=== PATIENT | male | born 1955 | race African-American/Black ===

== ENCOUNTER 2019-03-13 17:33 | Emergency (ER) | payer OTHER ==
--- NOTE | 2019-03-13 18:36 | RAD REPORT ---
EXAM DESCRIPTION: RAD - Chest Pa And Lat (2 Views) - 03/13/2019 6:14 pm CLINICAL HISTORY: PAIN, right lower back, rib and flank pain, recent fall COMPARISON: None. TECHNIQUE: PA, AP and lateral views of the chest were obtained. Patient had difficulty maintaining p ositioning so multiple acquisitions were obtained. FINDINGS: The lungs are clear of a peripheral mass or consolidation. Scarring or atelectasis present in each lung base. No significant failure or volume overload findings. Heart size is normal and ce ntral vasculature is within normal limits. No pleural effusion or pneumothorax seen. Degenerative a nd scoliotic changes are present. No aortic abnormality. IMPRESSION: No acute cardiopulmonary process.
[2019-03-13 19:39] LABS: Absolute Lymphocytes (CBC) 2.5 K/uL (0.7-4.9); Basophils % 0.6 % (0-1.3); Hematocrit 41.4 % (39.6-49.0); Lymphocytes % 38.5 % (15.3-44.8); MPV 9.7 fL (7.6-11.3); RBC Red Blood Cell Count 4.74 M/uL (4.33-5.43)
[2019-03-13 20:02] LABS: BUN Blood Urea Nitrogen 16 mg/dL (7-18); Bicarbonate 32 mmol/L (21-32); Glucose Level 81 mg/dL (74-106); Potassium 3.8 mmol/L (3.5-5.1); Sodium Level 139 mmol/L (136-145)
--- NOTE | 2019-03-13 21:10 | RAD REPORT ---
EXAM DESCRIPTION: CT - Abdomen Pelvis W Contrast - 03/13/2019 8:26 pm CLINICAL HISTORY: fall injury;Abd painfall, abdominal pain COMPARISON: None. TECHNIQUE: Biphasic, helical CT imaging of the abdomen and pelvis was performed following 100 ml non -ionic IV contrast. No oral contrast administered. All CT scans are performed using dose optimization technique as appropriate and may include automated exposure control or mA/KV adjustment according to patient size. FINDINGS: No suspicious findings in the lung bases. The liver, spleen, and pancreas show no suspicious findings. Gallbladder and biliary tree are also wi thout suspicious finding. Symmetric renal function is seen with no hydronephrosis or suspicious renal mass. No pyelonephritis o r acute parenchymal process. No bladder abnormalities. No adrenal abnormalities. No dilated bowel loops or bowel wall thickening. No free air, free fluid or inflammatory stranding. No hernia, mass or bulky lymphadenopathy. Degenerative disc disease at L4-5 and L5-S1. No compression fracture or acute vertebral body finding. Facet degenerative changes are present. Vascular calcifications are present without acute finding. IMPRESSION: Contrast enhanced CT abdomen and pelvis showing no acute or emergent finding.
--- NOTE | 2019-03-13 21:26 | EDPHYS ---
Physician Documentation [facility] Name: Chente Dupont Age: 63 yrs Sex: Male : 1955 Arrival Date: 03/13/2019 Time: 17:34 Bed 19 Private MD: ED Physician Bo Lawrence HPI: 03/13 19:22 This 63 yrs old Black Male presents to ER via Wheelchair with complaints of Rib Injury. la1 19:22 The patient presents with abdominal pain in the right upper quadrant, right lower la1 quadrant. Onset: The symptoms/episode began/occurred 4 day(s) ago. The symptoms do not radiate. Associated signs and symptoms: Pertinent negatives: nausea, vomiting, and diarrhea, nausea and vomiting, blood in stools, chest pain, hematuria, shortness of breath, testicular pain, vomiting, vomiting blood. The symptoms are described as sharp. Modifying factors: The symptoms are alleviated by nothing, the symptoms are aggravated by movement, touching the area. Severity of pain: At its worst the pain was moderate in the emergency department the pain is unchanged. pt reports fall from standing 4 days ago. Pain in RUQ and RLQ. Tender to palpation in that area. . Historical: - Allergies: 17:50 No Known Allergies; sr5 - PMHx: 17:50 polio; neck injury 91'; sr5 - Immunization history:: Adult Immunizations up to date. - Social history:: Smoking status: Patient/guardian denies using tobacco. - Ebola Screening: : Patient denies travel to an Ebola-affected area in the 21 days before illness onset. ROS: 19:24 Constitutional: Negative for fever, chills, and weight loss, Eyes: Negative for injury, la1 pain, redness, and discharge, ENT: Negative for injury, pain, and discharge, Neck: Negative for injury, pain, and swelling, Cardiovascular: Negative for chest pain, palpitations, and edema, Respiratory: + pleuritic chest pain Abdomen/GI: + abdominal pain Back: Negative for injury and pain, MS/Extremity: Negative for injury and deformity, Neuro: Negative for headache, weakness, numbness, tingling, and seizure. Exam: 19:25 Constitutional: This is a well developed, well nourished patient who is awake, alert, la1 and in no acute distress. Head/Face: Normocephalic, atraumatic. Eyes: Pupils equal round and reactive to light, extra-ocular motions intact. Periorbital areas with no swelling, redness, or edema. ENT: . Mucous membranes moist. Neck: Supple, full range of motion without nuchal rigidity, or vertebral point tenderness. No Meningismus. Chest/axilla: tenderness to palpation of right anterior inferior chest wall Cardiovascular: Regular rate and rhythm with a normal S1 and S2. No gallops, murmurs, or rubs. Normal PMI, no JVD. No pulse deficits. Respiratory: Lungs have equal breath sounds bilaterally, clear to auscultation No rales, rhonchi or wheezes noted. No increased work of breathing, no retractions or nasal flaring. 19:25 Abdomen/GI: Inspection: abdomen appears normal, distension, that is mild, Bowel sounds: normal, in all quadrants, Palpation: soft, in all quadrants, mild abdominal tenderness, in the epigastric area, right upper quadrant and right lower quadrant, Indicators: McBurney's point is not tender, Jarrett's sign is negative, Rovsing's sign is negative, Obturator sign is negative, Psoas sign is negative. Vital Signs: 17:50 BP 118 / 78; Pulse 55; Resp 14; Temp 98.1; Pulse Ox 97% on R/A; Weight 88.45 kg (R); sr5 Height 5 ft. 11 in. (180.34 cm); Pain 8/10; 20:51 BP 138 / 73; Pulse 49; Resp 15 S; Pulse Ox 99% on R/A; jd3 22:14 Pulse 52; Resp 16 S; Pulse Ox 97% on R/A; jd3 17:50 Body Mass Index 27.20 (88.45 kg, 180.34 cm) sr5 MDM: 18:37 Patient medically screened. la1 21:24 Data reviewed: vital signs, nurses notes, lab test result(s), radiologic studies, I la1 have discussed the patient's presentation/case with the attending Emergency Department Physician; and as a result, I will discharge patient. Data interpreted: Pulse oximetry: on room air. Counseling: I had a detailed discussion with the patient and/or guardian regarding: the historical points, exam findings, and any diagnostic results supporting the discharge/admit diagnosis, lab results, radiology results, the need for outpatient follow up, a family practitioner, to return to the emergency department if symptoms worsen or persist or if there are any questions or concerns that arise at home. Special discussion: Based on the patient's Hx, exam, and Dx evaluation, there is no indication for emergent surgery or inpatient Tx. It is understood by the patient/guardian that if the Sx's persist or worsen they need to return immediately for re-evaluation. I discussed with the patient/guardian that the patient's current presentation does not indicate dosing of antibiotics. They should follow-up with their primary care provider and return if the symptoms persist or progress. 03/13 19:08 Order name: CBC with Diff; Complete Time: 20:46 la1 03/13 19:08 Order name: BMP; Complete Time: 20:46 la1 03/13 17:52 Order name: Chest Pa And Lat (2 Views) XRAY; Complete Time: 18:40 sr5 03/13 19:08 Order name: CT Abd/Pelvis - IV Contrast Only; Complete Time: 21:19 la1 Administered Medications: 22:10 Drug: Motrin 600 mg Route: PO; jd3 22:10 Follow up: Response: Medication administered at discharge. jd3 22:10 Drug: Tylenol 650 mg Route: PO; jd3 22:11 Follow up: Response: Medication administered at discharge. jd3 Disposition: 03/13/19 21:25 Discharged to Home. Impression: Abdominal and pelvic pain. - Condition is Stable. - Discharge Instructions: Abdominal Pain, Adult, Fall Prevention in the Home, Abdominal Pain, Adult, [id number]. - Medication Reconciliation Form, Thank You Letter form. - Follow up: Private Physician; When: 2 - 3 days; Reason: Recheck today's complaints, Re-evaluation by your physician. Follow up: Emergency Department; When: As needed. - Problem is new. - Symptoms have improved. Addendum: 03/22/2019 09:23 Co-signature as Attending Physician, Bo Lawrence MD I agree with the assessment and c bearden plan of care. Signatures: Dispatcher [employer] Bo Monaco MD MD cha Attema, Lee, HAND BULLDOZER-C HAND BULLDOZER-Cla1 Karel Samuels RN RN sr5 Dudley Rebollar RN RN jd3 Dion Figueroa RN RN ae4 Corrections: (The following items were deleted from the chart) 03/13 21:25 21:25 03/13/2019 21:25 Discharged to Home. Impression: Abdominal and pelvic pain. la1 Condition is Stable. Forms are Medication Reconciliation Form, Thank You Letter, Antibiotic Education, Prescription Opioid Use. Follow up: Private Physician; When: 2 - 3 days; Reason: Recheck today's complaints, Re-evaluation by your physician. Follow up: Emergency Department; When: As needed. la1 22:15 21:25 03/13/2019 21:25 Discharged to Home. Impression: Abdominal and pelvic pain. jd3 Condition is Stable. Forms are Medication Reconciliation Form, Thank You Letter, Antibiotic Education, Prescription Opioid Use. Follow up: Private Physician; When: 2 - 3 days; Reason: Recheck today's complaints, Re-evaluation by your physician. Follow up: Emergency Department; When: As needed. Problem is new. Symptoms have improved. la1
--- NOTE | 2019-03-13 21:26 | ER ---
Nurse's Notes [facility] Name: Chente Dupont Age: 63 yrs Sex: Male : 1955 Arrival Date: 03/13/2019 Time: 17:34 Bed 19 Private MD: Diagnosis: Abdominal and pelvic pain Presentation: 03/13 17:48 Presenting complaint: Patient states: pain to RIGHT lower ribs/flank s/p fall from sr5 standing position on 03/10. No visible bruising noted. Abd firm, appears distended, pt reports this as normal. Transition of care: patient was not received from another setting of care. Onset of symptoms was March 10, 2019. Risk Assessment: Do you want to hurt yourself or someone else? Patient reports no desire to harm self or others. Initial Sepsis Screen: Does the patient meet any 2 criteria? No. Patient's initial sepsis screen is negative. Care prior to arrival: None. 17:48 Method Of Arrival: Wheelchair sr5 17:48 Acuity: MARILYN 4 sr5 18:58 Initial Sepsis Screen: Does the patient have a suspected source of infection? No. ae4 Patient's initial sepsis screen is negative. Triage Assessment: 17:50 General: Appears uncomfortable, Behavior is cooperative. Pain: Complains of pain in sr5 anterior aspect of right lateral abdomen, posterior aspect of right lateral abdomen and right upper quadrant Pain. Neuro: No deficits noted. Cardiovascular: No deficits noted. Respiratory: Respiratory effort is even, unlabored, Respiratory pattern is regular, symmetrical. Historical: - Allergies: 17:50 No Known Allergies; sr5 - PMHx: 17:50 polio; neck injury 91'; sr5 - Immunization history:: Adult Immunizations up to date. - Social history:: Smoking status: Patient/guardian denies using tobacco. - Ebola Screening: : Patient denies travel to an Ebola-affected area in the 21 days before illness onset. Screenin:57 Abuse screen: Denies threats or abuse. Nutritional screening: No deficits noted. ae4 Tuberculosis screening: No symptoms or risk factors identified. Fall Risk None identified. Assessment: 18:44 General: Appears uncomfortable, well groomed, Behavior is cooperative, Patient is slow ae4 to move, and resistant to movement. . Pain: Complains of pain in Right rib area pain. Neuro: Level of Consciousness is awake, alert, obeys commands, Oriented to person, place, time, situation, Appropriate for age. Cardiovascular: Heart tones S1 S2 present Patient's skin is warm and dry. Rhythm is sinus bradycardia. Respiratory: Airway is patent Respiratory effort is even, unlabored, Respiratory pattern is regular, symmetrical, Breath sounds are diminished in right lower lobe, left posterior lower lobe and right posterior lower lobe. GI: No signs and/or symptoms were reported involving the gastrointestinal system. Abdomen is round distended, obese. : No signs and/or symptoms were reported regarding the genitourinary system. EENT: No signs and/or symptoms were reported regarding the EENT system. Derm: Skin is normal. Musculoskeletal: Reports Patient has a hx of polio and has right leg shortening and unsteady, weak gait. Injury Description: Patient reports he fell and struck the floor with his right rib area. 19:37 General: Appears in no apparent distress. uncomfortable, Behavior is calm, cooperative, jd3 appropriate for age. Pain: Complains of pain in chest Quality of pain is described as aching, tender. Neuro: Level of Consciousness is awake, alert, obeys commands, Oriented to person, place, time, situation. Cardiovascular: Capillary refill < 3 seconds Patient's skin is warm and dry. Respiratory: Airway is patent Respiratory effort is even, unlabored, Respiratory pattern is regular, symmetrical, Denies cough, shortness of breath. GI: No signs and/or symptoms were reported involving the gastrointestinal system. : No signs and/or symptoms were reported regarding the genitourinary system. EENT: No signs and/or symptoms were reported regarding the EENT system. Derm: Skin is intact, Skin is dry, Skin is normal, Skin temperature is warm. 20:51 Reassessment: Patient appears in no apparent distress at this time. No changes from jd3 previously documented assessment. Patient and/or family updated on plan of care and expected duration. Pain level reassessed. Patient is alert, oriented x 3, equal unlabored respirations, skin warm/dry/pink. 22:13 Reassessment: Patient appears in no apparent distress at this time. Patient and/or jd3 family updated on plan of care and expected duration. Pain level reassessed. Patient is alert, oriented x 3, equal unlabored respirations, skin warm/dry/pink. assisted pt to wheelchair and into vehicle. pt reported understanding of discharge instructions. Vital Signs: 17:50 BP 118 / 78; Pulse 55; Resp 14; Temp 98.1; Pulse Ox 97% on R/A; Weight 88.45 kg (R); sr5 Height 5 ft. 11 in. (180.34 cm); Pain 8/10; 20:51 BP 138 / 73; Pulse 49; Resp 15 S; Pulse Ox 99% on R/A; jd3 22:14 Pulse 52; Resp 16 S; Pulse Ox 97% on R/A; jd3 17:50 Body Mass Index 27.20 (88.45 kg, 180.34 cm) sr5 ED Course: 17:34 Patient arrived in ED. as 17:49 Triage completed. sr5 17:50 Arm band placed on left wrist. sr5 18:05 Carr[facility]. la1 18:05 Bo Lawrence MD is Attending Physician. la1 18:12 Chest Pa And Lat (2 Views) XRAY In Process Unspecified. EDMS 18:35 Dion Figueroa, CARLOS is Primary Nurse. ae4 18:58 Bed in low position. Call light in reach. Side rails up X 1. Pulse ox on. NIBP on. Warm ae4 blanket given. 19:31 Inserted saline lock: 22 gauge in left antecubital area, using aseptic technique. Blood mt collected. 20:27 CT Abd/Pelvis - IV Contrast Only In Process Unspecified. EDMS 22:11 No provider procedures requiring assistance completed. IV discontinued, intact, jd3 bleeding controlled, No redness/swelling at site. Pressure dressing applied. Administered Medications: 22:10 Drug: Motrin 600 mg Route: PO; jd3 22:10 Follow up: Response: Medication administered at discharge. jd3 22:10 Drug: Tylenol 650 mg Route: PO; jd3 22:11 Follow up: Response: Medication administered at discharge. jd3 Outcome: 21:25 Discharge ordered by . la1 22:11 Discharged to home via wheelchair, with family. jd3 22:11 Condition: stable 22:11 Discharge instructions given to patient, family, Instructed on discharge instructions, follow up and referral plans. incitivespirometer Demonstrated understanding of instructions, follow-up care. 22:15 Patient left the ED. jd3 Signatures: Dispatcher [employer] Debra Villavicencio Lee, MESSAGE AND DELIVERY SERVICE PRICER-C MESSAGE AND DELIVERY SERVICE PRICER-Cla1 Karel Samuels RN RN sr5 Tamie Olivarez mt, Jonathon, RN RN jd3 Dion Figueroa RN RN ae4
[2019-03-13] MEDS ORDERED: ACETAMINOPHEN 325 MG TABLET ONE (21:53)
[2019-03-13] MEDS ORDERED: IBUPROFEN 400 MG TAB ONE (21:54)
[2019-03-13] MEDS ORDERED: IBUPROFEN 200 MG TAB PO ONE (21:54)
[2019-03-13 22:20] VITALS: TEMP 98.1
[2019-03-13 22:21] VITALS: BP 138/73
[2019-03-13 22:22] VITALS: O2SAT 97
== END 2019-03-13 22:15 | disposition home or self-care (01) ==
LOC: ER 17:33
DX: R10.2 Pelvic and perineal pain (principal); W19.XXXA Unspecified fall, initial encounter
CPT/HCPCS: 36415; 71046; 74177; 80048; 85025; 99284

== ENCOUNTER 2022-04-07 23:49 | Emergency (ER) | payer OTHER ==
--- OUTSIDE RECORDS SUMMARY | 2022-04-07 23:53 | XMS REPORT | Continuity of Care Document ---
:1955 Author Organization [facility] t Address [facility] [place] [id number] Care Team Providers Name Role Phone DELFINO KU Attending Clinician Unavailable Larry Ortiz Attending Clinician Unavailable THIAGO GONZALEZ Attending Clinician Unavailable Oracio Attending Clinician Unavailable Oracio Admitting Clinician Unavailable Payers Payer Name Policy Type Policy Number Effective Date Expiration Date S y[place]: [id number] 2006 [employer] 00:00:00 [place] - [id number] HP - TRADITIONAL Problems This patient has no known problems. Allergies, Adverse Reactions, Alerts This patient has no known allergies or adverse reactions. Medications This patient has no known medications. Procedures This patient has no known procedures. Encounters Start End Encounter Admission Attending Care Care Encounter Source Date/Time Date/Time Type Type Clinicians Facility Department ID 2022-03-22 2022-03-22 Outpatient DOMINIQUE FRANKKELLI [facility] [id number] [place] 15:41:00 15:41:00 DELFINO [id number] [facility] 2020-12-01 2020-12-01 Outpatient DOMINIQUE Ortiz [facility] [id number] [place] 14:25:00 14:25:00 Larry [id number] [facility] 2020-11-02 2020-11-02 Outpatient DOMINIQUE GONZALEZ [facility] [id number] [place] 14:26:00 14:26:00 THIAGO [id number] [facility] 2017-09-09 2017-09-09 Outpatient Oracio [facility]G MMG [id number] [place] 03:30:00 03:30:00 [id number] Medical [facility] Results This patient has no known results.
--- NOTE | 2022-04-08 01:02 | ER ---
Nurse's Notes [facility] Name: Chente Dupont Age: 66 yrs Sex: Male : 1955 Arrival Date: 04/07/2022 Time: 23:55 Bed 8 Private MD: Diagnosis: Pain in left foot;Pain in left hand Presentation: 04/08 00:14 Chief complaint: Patient states: I have a tingly L foot, that like thumping all the way aa9 up my hip and all of my L fingers are like numb, this started yesterday. Coronavirus screen: Vaccine status: Patient reports receiving the 2nd dose of the covid vaccine. Ebola Screen: No symptoms or risks identified at this time. Initial Sepsis Screen: Does the patient meet any 2 criteria? No. Patient's initial sepsis screen is negative. Does the patient have a suspected source of infection? No. Patient's initial sepsis screen is negative. Risk Assessment: Do you want to hurt yourself or someone else? Patient reports no desire to harm self or others. Onset of symptoms was April 08, 2022. 00:14 Method Of Arrival: Wheelchair aa9 00:14 Acuity: MARILYN 4 aa9 Triage Assessment: 00:19 General: Appears uncomfortable, well groomed, Behavior is calm, cooperative, aa9 appropriate for age. Pain: Complains of pain in left foot Pain radiates to left hip Pain currently is 10 out of 10 on a pain scale. Noted to be resistant to movement. EENT: No deficits noted. Neuro: Level of Consciousness is awake, alert, obeys commands, Oriented to person, place, time, situation, Engineering Instructor are equal bilaterally Facial symmetry appears normal. Cardiovascular: Patient's skin is warm and dry. Respiratory: Airway is patent Respiratory effort is even, unlabored. GI: No signs and/or symptoms were reported involving the gastrointestinal system. : No signs and/or symptoms were reported regarding the genitourinary system. Derm: Skin is intact, is healthy with good turgor. Musculoskeletal: Reports numbness in left hand. Historical: - Allergies: 00:17 No Known Allergies; aa9 - Home Meds: 00:17 losartan oral [Active]; gabapentin oral [Active]; Hydrocodone-Acetaminophen Oral aa9 [Active]; amlodipine oral [Active]; Aspirin EC Oral [Active]; Hydrochlorothiazide Oral [Active]; - PMHx: 00:17 Polio; neck injury 91'; aa9 - PSHx: 00:17 None; aa9 - Immunization history:: Client reports receiving the 2nd dose of the Covid vaccine. - Social history:: Smoking status: Patient denies any tobacco usage or history of. - Family history:: not pertinent. Screenin:22 Abuse screen: Denies threats or abuse. Denies injuries from another. Nutritional aa9 screening: No deficits noted. Tuberculosis screening: No symptoms or risk factors identified. 01:04 [facility] ED Fall Risk Assessment (Adult) History of falling in the last 3 months, aa9 including since admission No falls in past 3 months (0 pts) Confusion or Disorientation No (0 pts) Intoxicated or Sedated No (0 pts) Impaired Gait Yes (1 pt) Mobility Assist Device Used Yes (1 pt) Altered Elimination No (0 pt) Score/Fall Risk Level 3 or more points = High Risk Oriented to surroundings, Maintained a safe environment, Educated pt \T\ family on fall prevention, incl call for assistance when getting out of bed. Assessment: 01:03 Reassessment: Patient appears in no apparent distress at this time. Patient and/or aa9 family updated on plan of care and expected duration. Pain level reassessed. Patient is alert, oriented x 3, equal unlabored respirations, skin warm/dry/pink. Neuro: Level of Consciousness is awake, alert, obeys commands, Oriented to person, place, time, situation. Respiratory: Airway is patent Respiratory effort is even, unlabored. Vital Signs: 00:14 BP 173 / 62; Pulse 62; Resp 17 S; Temp 98.1; Pulse Ox 99% on R/A; Pain 10/10; aa9 00:22 Weight 88.9 kg (R); Height 5 ft. 11 in. (180.34 cm) (R); aa9 01:00 BP 156 / 63; Pulse 57; Resp 18 S; Pulse Ox 96% on R/A; aa9 00:22 Body Mass Index 27.34 (88.90 kg, 180.34 cm) aa9 ED Course: 04/07 23:55 Patient arrived in ED. ja2 23:56 Alex Bradley MD is Attending Physician. rt 04/08 00:14 Singh, Carolina, RN is Primary Nurse. aa9 00:17 Triage completed. aa9 00:22 Patient has correct armband on for positive identification. Placed in gown. Bed in low aa9 position. Call light in reach. Side rails up X2. Adult w/ patient. Client placed on continuous cardiac and pulse oximetry monitoring. NIBP monitoring applied. 00:22 Arm band placed on Patient notified of wait time. aa9 00:30 Hand Left 3 View XRAY In Process Unspecified. EDMS 00:47 Extremity Venous Uni Ltd US In Process Unspecified. EDMS 01:04 No provider procedures requiring assistance completed. Patient did not have IV access aa9 during this emergency room visit. Administered Medications: No medications were administered Medication: 01:04 VIS not applicable for this client. aa9 Outcome: 01:02 Discharge ordered by . rt 01:07 Discharged to home via wheelchair, with family. aa9 01:07 Condition: stable 01:07 Discharge instructions given to patient, family, Instructed on discharge instructions, follow up and referral plans. medication usage, Demonstrated understanding of instructions, follow-up care, medications, Prescriptions given X 1. 01:08 Patient left the ED. aa9 Signatures: Dispatcher [employer] EDMS Alycia Samuel ja2 Carolina Singh, RN RN aa9 Alex Bradley MD MD rt
--- NOTE | 2022-04-08 01:02 | EDPHYS ---
Physician Documentation [facility] Name: Chente Dupont Age: 66 yrs Sex: Male : 1955 Arrival Date: 04/07/2022 Time: 23:55 Bed 8 Private MD: ED Physician Alex Bradley HPI: 04/08 01:33 This 66 yrs old Black Male presents to ER via Wheelchair with complaints of Feet rt Swelling, Leg Pain, Numbness Of Hand. 01:33 Presents to the ED with about 2 weeks of a left foot pain as well as a numbness to rt fingers on his left hand. He states the pain is felt somewhat worsened over the past 2 days. He reports no redness, skin change to the distal toes of the second and third digits. He denies any injury. The patient denies other numbness of the arm or leg. Pain is burning in nature, eating to the proximal thigh. There are no aggravating or alleviating factors. Symptoms are mild in severity.. Historical: - Allergies: 00:17 No Known Allergies; aa9 - Home Meds: 00:17 losartan oral [Active]; gabapentin oral [Active]; Hydrocodone-Acetaminophen Oral aa9 [Active]; amlodipine oral [Active]; Aspirin EC Oral [Active]; Hydrochlorothiazide Oral [Active]; - PMHx: 00:17 Polio; neck injury 91'; aa9 - PSHx: 00:17 None; aa9 - Immunization history:: Client reports receiving the 2nd dose of the Covid vaccine. - Social history:: Smoking status: Patient denies any tobacco usage or history of. - Family history:: not pertinent. ROS: 01:33 Constitutional: Negative for fever, chills, and weight loss, Eyes: Negative for injury, rt pain, redness, and discharge, Cardiovascular: Negative for chest pain, palpitations, and edema, Respiratory: Negative for shortness of breath, cough, wheezing, and pleuritic chest pain, Abdomen/GI: Negative for abdominal pain, nausea, vomiting, diarrhea, and constipation, Neuro: Negative for headache, weakness, numbness, tingling, and seizure, Psych: Negative for depression, anxiety, suicide ideation, homicidal ideation, and hallucinations. 01:33 MS/extremity: Positive for Pain, burning to the left foot, left him . Exam: 01:33 Constitutional: This is a well developed, well nourished patient who is awake, alert, rt and in no acute distress. Head/Face: Normocephalic, atraumatic. Chest/axilla: Normal chest wall appearance and motion. Nontender with no deformity. No lesions are appreciated. Cardiovascular: Regular rate and rhythm with a normal S1 and S2. No gallops, murmurs, or rubs. Normal PMI, no JVD. No pulse deficits. Respiratory: Lungs have equal breath sounds bilaterally, clear to auscultation and percussion. No rales, rhonchi or wheezes noted. No increased work of breathing, no retractions or nasal flaring. Skin: Warm, dry with normal turgor. Normal color with no rashes, no lesions, and no evidence of cellulitis. Neuro: Awake and alert, GCS 15, oriented to person, place, time, and situation. Cranial nerves II-XII grossly intact. Motor strength 5/5 in all extremities. Sensory grossly intact. Cerebellar exam normal. Normal gait. Psych: Awake, alert, with orientation to person, place and time. Behavior, mood, and affect are within normal limits. 01:33 Musculoskeletal/extremity: Skin is somewhat macerated and moist between the toes of the left foot, no other swelling, deformity, tenderness to palpation, no appreciable erythema. Pulses, motor, sensation intact in bilateral lower extremities. Patient has no numbness, weakness to the left arm. There is no deformities noted he has good channel layer strength.. Vital Signs: 00:14 BP 173 / 62; Pulse 62; Resp 17 S; Temp 98.1; Pulse Ox 99% on R/A; Pain 10/10; aa9 00:22 Weight 88.9 kg (R); Height 5 ft. 11 in. (180.34 cm) (R); aa9 01:00 BP 156 / 63; Pulse 57; Resp 18 S; Pulse Ox 96% on R/A; aa9 00:22 Body Mass Index 27.34 (88.90 kg, 180.34 cm) aa9 MDM: 04/07 23:58 Patient medically screened. rt 04/08 01:33 Differential diagnosis: DVT, neurologic deficit, neuropathic pain cellulitis, septic rt arthritis. Data reviewed: vital signs, nurses notes, radiologic studies. Independent interpretation of the following test(s) in the Emergency Department X-Ray: My interpretation is No acute abnormalities noted. Test considered but Not performed: Labs: Stable vital signs. ED course: Patient presents to the ED with pain to the left foot, left hand. There is no appreciable neurologic deficit, do not suspect CVA, TIA. 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 Patient with macerated skin between the toes. I informed patient she keep the toes dry. This possible there are some neuropathic pain present. Will prescribe patient gabapentin. Do not believe the narcotics are indicated at this time. Patient stable for outpatient care to follow-up with PCP, return precautions discussed. 04/08 00:08 Order name: Extremity [facility]ous [employer] US rt 04/08 00:08 Order name: Hand Left 3 View XRAY rt Administered Medications: No medications were administered Disposition Summary: 04/08/22 01:02 Discharge Ordered Location: Home rt Problem: new rt Symptoms: are unchanged rt Condition: Stable rt Diagnosis - Pain in left foot rt - Pain in left hand rt Followup: rt - With: Private Physician - When: 2 - 3 days - Reason: Discharge Instructions: - Discharge Summary Sheet rt - Musculoskeletal Pain rt - Neuropathic Pain rt Forms: - Medication Reconciliation Form rt - Thank You Letter rt - Antibiotic Education rt - Prescription Opioid Use rt Prescriptions: - GABAPENTIN 100 MG tab - take 1 tablet by ORAL route 3 times per day; 30 tablet; Refills: 0, Product rt Selection Permitted Signatures: Dispatcher [employer] Carolina Moreno RN RN aa9 Alex Bradley MD MD rt
[2022-04-08 01:12] VITALS: TEMP 98.1
[2022-04-08 01:14] VITALS: BP 156/63; O2SAT 96
--- NOTE | 2022-04-08 18:12 | RAD REPORT ---
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 FINDINGS: 3 X-ray views of the left hand (Frontal, lateral and oblique views) were performed. No acute bony injuries were demonstrated. No gross soft tissue abnormality is identified. There a re no gross intraosseous lesions. No periosteal reaction were seen. There are degenerative change s/spurring involving the first through fifth metatarsophalangeal joints and a very minimal degenerati ve changes within the DIP joints. Carpal bones demonstrate normal alignment. IMPRESSION: No acute bony injuries were demonstrated. Minimal degenerative changes. Electronically signed by: Chico Parham MD 04/08/2022 12:37 AM AB INITIO ETL DEVELOPER Due to temporary technical issues with the PACS/Fluency reporting system, reports are being signed by the in house radiologists without review as a courtesy to insure prompt reporting. The interpreting radiologist is fully responsible for the content of the report
--- NOTE | 2022-04-08 18:21 | RAD REPORT ---
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 Left common femoral vein, left superficial femoral vein, left popliteal vein, left posterior tibial a nd peroneal veins at the level of the calves were imaged. Spectral waveform demonstrate normal co mpressibility, phasicity and augmentation. No intraluminal defects were seen. Anechoic structure wi thin the left popliteal fossa measuring 2 x 1.2 x 2.3 cm could correspond to a Hawkins's cyst. IMPRESSION: No sonographic evidence of deep venous thrombosis of the left lower extremity. Electronically signed by: Chico Parham MD 04/08/2022 12:58 AM DOCTOR OF NATUROPATHIC MEDICINE Due to temporary technical issues with the PACS/Fluency reporting system, reports are being signed by the in house radiologists without review as a courtesy to insure prompt reporting. The interpreting radiologist is fully responsible for the content of the report
== END 2022-04-08 01:08 | disposition home or self-care (01) ==
LOC: ER 23:49
DX: M79.672 Pain in left foot (principal); M79.642 Pain in left hand
CPT/HCPCS: 93971; 99283